=== PATIENT | male | born 1955 | race Caucasian/White ===

== ENCOUNTER → 2019-06-12 | Outpatient (CLI) | payer OTHER ==
--- NOTE | 2019-06-16 15:29 | 24HR ---
[place] [address] [employer]OLTER MONITOR REPORT Name: TONI LACY Room: [facility]#: [id number] Admission: 06/12/19 Attend Phys: Daly Morrow, Discharge: Date of : 55 Date of Service: 06/16/19945 Report #: [id number] THIS REPORT FOR: //name// [facility] Test Date: 2019-06-16 Test Time: 09:46:27 Pat Name: TONI LACY Department: Room: Gender: Courtroom Reporter: : 1955 Requested By: Daly Morrow Order Number: [id number] Reading : Nickolas Newton Interpretive Statements 1. sinus rhythm with sinus bradycardia 2. frequent pvc's with bigeminy and ventricular couplets and triplets 3. rare pac 4. no symptoms in diary Electronically Signed On 06-16-2019 15:28:41 DUPLICATOR PUNCH OPERATOR by Nickolas Newton [email or web address] <ELECTRONICALLY SIGNED> By: Nickolas Newton MD, [facility] 06/16/19 1528 5 Nickolas Newton MD, FACC /EPI
== END ==
LOC: M.CRD 14:30
DX: I49.3 Ventricular premature depolarization (principal)